=== PATIENT | male | born 1945 | race American Indian/Alaskan Native ===

== ENCOUNTER 2017-03-13 13:16 | Inpatient (IN) | payer MEDICARE ==
[2017-03-13] MEDS ORDERED: D50W (25GM) Syringe IV PRN ×2 (15:05→17:19)
[2017-03-13] MEDS ORDERED: KIONEX PO ONE ×2 (15:19→18:00)
[2017-03-13] MEDS: NACL 0.9% 1000 ML 1,000 ML IV SCH (17:34)
[2017-03-13] MEDS: NORCO 7.5/325 PO PRN ×2 (17:35→23:15)
[2017-03-13 19:13] LABS: Basophils % (Auto) 0.6 % (0.0-1.8); Eosinophils % (Auto) 0.1 % (0.0-4.3); Hematocrit 43.3 % (35.5-45.6); Hemoglobin 13.9 gm/dl (11.8-15.2); Mean Corpuscular HGB Conc 32 % (32-34); Mean Corpuscular Hemoglobin 30 pg (28-32); Mean Corpuscular Volume 93 fl (84-94); Platelet Count 269 K/mm3 (140-440); Red Blood Count 4.68 M/mm3 (3.65-5.03); Red Cell Distribution Width 14.1 % (13.2-15.2); White Blood Count 9.6 K/mm3 (4.5-11.0)
[2017-03-13 19:19] LABS: Albumin 4.1 g/dL (3.9-5); Albumin/Globulin Ratio 1.2 %; Bilirubin,Total 0.4 mg/dL (0.1-1.2); Calcium 9.9 mg/dL (8.4-10.2); Chloride 99.8 mmol/L (98-107); Potassium 5.1 mmol/L (3.6-5.0); Total Protein 7.6 g/dL (6.3-8.2)
--- NOTE | 2017-03-13 20:04 | History and Physical Report ---
History of Present Illness Date of examination: 03/13/17 Date of admission: 03/13/17 15:19 Chief complaint: Left shoulder pain Elevated serum Potassium Generalised weakness . History of present illness: 71 year old male admitted from the office with above named complaint . Patient had preoprative evaluation for planned left rotator cuff repair and labs was found to be abnormal showing elevated BUN and Creatinine and serum potassium was 5.8 .This was later repeated and found to be 6.2 . Patient has ongoing treatment for Type 2 Diabetes and Hypertension and previous evaluation for Chronic renal insufficiency previously evaluated by Dr Cee's group . Patient complaining of ongoing left shoulder pain aggravated by physical activities and pushing and lifting . Patient has ongoing generalized body pain , no chest pain and denied shortness of breath , no fever or chills .Patientstated taht his blood glucose has been running fairly well . Past History Past Medical History: diabetes, hypertension, renal failure Social history: , lives with family Family history: diabetes, hypertension, stroke Medications and Allergies Allergies Allergy/AdvReac Type Severity Reaction Status Date / Time No Known Allergies Allergy Verified 06/20/13 06:44 Home Medications Medication Instructions Recorded Confirmed Last Taken Type Gabapentin 800 mg PO TID 06/20/13 03/13/17 03/13/17 08:00 History Nitroglycerin [Nitrostat] 0.4 mg SL PRN PRN 06/20/13 03/13/17 06/20/15 History .4mg Clopidogrel Bisulfate [Plavix] 75 mg PO QDAY #30 tablet 06/21/13 03/13/17 08:00 Rx 75 mg Insulin Aspart Prot/Aspart(Nf) 50 unit SQ QAM 01/18/14 03/13/17 03/13/17 08:00 History [NovoLOG Mix 70/30 VIAL] 50 units Insulin NPH/Regular [NovoLIN 70/30] 45 unit SQ QPM 01/18/14 03/13/17 03/12/17 20 :00 History 45 units Pravastatin Sodium [Pravastatin 20 mg PO HS 07/21/15 03/13/17 03/13/17 08:00 History Sodium] Aspirin [Aspirin TAB] 325 mg PO DAILY 03/13/17 03/13/17 03/13/17 08:00 History 325 mg Doxycycline Monohydrate 100 mg PO BID 03/13/17 03/13/17 03/13/17 08:00 History [Doxycycline Monohydrate CAP] 100 mg HYDROcodone/APAP 10-325 [[place] 1 each PO Q6HR PRN 03/13/17 03/13/17 03/12/17 20: 00 History 10/325] Naproxen [Naprosyn TAB] 500 mg PO BIDPC 03/13/17 03/13/17 03/13/17 08:00 History 500 mg Active Meds: Active Medications Acetaminophen/Hydrocodone Bitart ([place] 7.5/325) 1 each PO Q6H PRN PRN Reason: Pain, Moderate (4-6) Last Admin: 03/13/17 17:35 Dose: 1 each Dextrose (D50w (25gm) Syringe) 50 ml IV PRN PRN PRN Reason: Hypoglycemia Dextrose (D50w (25gm) Syringe) 50 ml IV PRN PRN PRN Reason: Hypoglycemia Heparin Sodium (Porcine) (Heparin) 5,000 unit SUB-Q Q12HR HARESH Sodium Chloride (Nacl 0.9% 1000 Ml) 1,000 mls @ 100 mls/hr IV DIRECT HARESH Last Admin: 03/13/17 17:34 Dose: 100 mls/hr Insulin Human Regular (Novolin R) 0 units SUB-Q ACHS HARESH PRN Reason: Protocol Last Admin: 03/13/17 17:29 Dose: 6 units Review of Systems Constitutional: weakness Cardiovascular: palpitations, decreased exercise tolerance Musculoskeletal: shooting arm pain, low back pain, morning stiffness, limitation of motion Endocrine: high blood sugars Exam - Constitutional Vitals: Temp Pulse Resp BP Pulse Ox 97.2 F L 102 H 20 166/95 98 03/13/17 14:32 03/13/17 14:32 03/13/17 14:32 03/13/17 14:32 03/13/17 14:32 General appearance: Present: no acute distress - EENT Eyes: Present: PERRL, EOM intact ENT: poor dentition - Neck Neck: Present: supple, normal ROM - Respiratory Respiratory effort: normal Respiratory: bilateral: CTA - Cardiovascular Rhythm: regular Heart Sounds: Present: S1 & S2 - Extremities Extremities: no ischemia, pulses symmetrical, No edema, normal temperature Peripheral Pulses: within normal limits - Abdominal General gastrointestinal: Present: non-tender, normal bowel sounds Male genitourinary: Present: deferred - Rectal Rectal Exam: deferred - Integumentary Integumentary: Present: warm, dry - Musculoskeletal Musculoskeletal: left sided weakness, other (limited ROM left shoulder ) - Psychiatric Psychiatric: appropriate mood/affect, memory intact, cooperative - Neurologic Neurologic: CNII-XII intact Results - Labs CBC & Chem 7: 03/13/17 17:03 03/13/17 20:39 Labs: Abnormal lab results 03/13/17 03/13/17 Range/Units 17:03 17:15 Potassium 5.1 H (3.6-5.0) mmol/L BUN 32 H (9-20) mg/dL Creatinine 1.6 H (0.8-1.5) mg/dL Glucose 336 H (75-100) mg/dL POC Glucose 314 H (70-105) Assessment and Plan - Patient Problems (1) Acute renal failure Current Visit: Yes Status: Acute Qualifiers: Acute renal failure type: A Plan to address problem: Will admit patient for management of hyperkalemia. Kayexalate ordered and repeat potassium to be monitored renal consultation with Dr. Cee/Dr. Kiser (2) Acute hyperkalemia Current Visit: Yes Status: Acute (3) Essential (primary) hypertension Current Visit: Yes Status: Acute Plan to address problem: Continue current blood pressure medication monitor urinary output and blood pressure control for optimal management (4) Type 2 diabetes mellitus without complications Current Visit: Yes Status: Acute Qualifiers: Diabetes mellitus prison insulin use: D Plan to address problem: Patient noted to be hyperglycemic will adjust current long-acting insulin and place on moderate dose sliding scale regular insulin control to encourage further movement of potassium into the intracellular space (5) Osteoarthrosis involving shoulder region Current Visit: Yes Status: Acute Qualifiers: Osteoarthritis type: O Laterality: L Plan to address problem: Patient being scheduled for rotator cuff surgery. With continue with current medical management for optimal electrolyte control and renal function stabilization prior to surgery
--- NOTE | 2017-03-13 22:18 | Consultation ---
History of Present Illness - Reason for Consult Consult date: 03/13/17 acute renal failure, hyperkalemia Requesting physician: GABBY DAVILA - History of Present Illness 71 years old male known to us via (who is an ESRD pt), sent from PCP office for admission 2/2 hyperkalemia. He states that he was scheduled to have shoulder surgery done at [facility] where preop labs showed high potassium . Surgery was postponed and he was sent to PCP for management of hyperkalemia. Repeat labs were drawn there and it showed K of 6.3. He has hx of long standing DM II and HTN and has CKD stage 3 with a baseline CR of about 1.6 to 1.8. We are consulted to assist with management of CKD/hyperkalemia Past History Past Medical History: diabetes, hypertension, renal failure Social history: , lives with family Family history: diabetes, hypertension, stroke Medications and Allergies Allergies Allergy/AdvReac Type Severity Reaction Status Date / Time No Known Allergies Allergy Verified 06/20/13 06:44 Home Medications Medication Instructions Recorded Confirmed Last Taken Type Gabapentin 800 mg PO TID 06/20/13 03/13/17 03/13/17 08:00 History Nitroglycerin [Nitrostat] 0.4 mg SL PRN PRN 06/20/13 03/13/17 06/20/15 History .4mg Clopidogrel Bisulfate [Plavix] 75 mg PO QDAY #30 tablet 06/21/13 03/13/17 08:00 Rx 75 mg Insulin Aspart Prot/Aspart(Nf) 50 unit SQ QAM 01/18/14 03/13/17 03/13/17 08:00 History [NovoLOG Mix 70/30 VIAL] 50 units Insulin NPH/Regular [NovoLIN 70/30] 45 unit SQ QPM 01/18/14 03/13/17 03/12/17 20 :00 History 45 units Pravastatin Sodium [Pravastatin 20 mg PO HS 07/21/15 03/13/17 03/13/17 08:00 History Sodium] Aspirin [Aspirin TAB] 325 mg PO DAILY 03/13/17 03/13/17 03/13/17 08:00 History 325 mg Doxycycline Monohydrate 100 mg PO BID 03/13/17 03/13/17 03/13/17 08:00 History [Doxycycline Monohydrate CAP] 100 mg HYDROcodone/APAP 10-325 [[place] 1 each PO Q6HR PRN 03/13/17 03/13/17 03/12/17 20: 00 History 10/325] Naproxen [Naprosyn TAB] 500 mg PO BIDPC 03/13/17 03/13/17 03/13/17 08:00 History 500 mg Active Meds: Active Medications Acetaminophen/Hydrocodone Bitart ([place] 7.5/325) 1 each PO Q6H PRN PRN Reason: Pain, Moderate (4-6) Last Admin: 03/13/17 17:35 Dose: 1 each Dextrose (D50w (25gm) Syringe) 50 ml IV PRN PRN PRN Reason: Hypoglycemia Dextrose (D50w (25gm) Syringe) 50 ml IV PRN PRN PRN Reason: Hypoglycemia Heparin Sodium (Porcine) (Heparin) 5,000 unit SUB-Q Q12HR HARESH Sodium Chloride (Nacl 0.9% 1000 Ml) 1,000 mls @ 100 mls/hr IV DIRECT HARESH Last Admin: 03/13/17 17:34 Dose: 100 mls/hr Insulin Human Regular (Novolin R) 0 units SUB-Q ACHS HARESH PRN Reason: Protocol Last Admin: 03/13/17 17:29 Dose: 6 units Review of Systems All systems: negative Constitutional: no weight loss, no weight gain, no fever Ears, nose, mouth and throat: no nasal discharge, no sinus pressure Cardiovascular: no chest pain, no orthopnea, no palpitations Respiratory: no cough with sputum, no shortness of breath Gastrointestinal: no abdominal pain, no nausea, no vomiting Genitourinary Male: no dysuria, no hematuria, no flank pain Rectal: no pain, no incontinence Musculoskeletal: no neck stiffness, no neck pain Integumentary: no rash, no pruritis, no redness Neurological: no weakness, no parathesias, no numbness Psychiatric: no anxiety, no memory loss Endocrine: no cold intolerance, no heat intolerance Hematologic/Lymphatic: no easy bruising, no easy bleeding Exam - Vital Signs Vital signs: Vital Signs Temp Pulse Resp BP Pulse Ox 97.2 F L 102 H 20 166/95 98 03/13/17 14:32 03/13/17 14:32 03/13/17 14:32 03/13/17 14:32 03/13/17 14:32 - General Appearance General appearance: well-developed, well-nourished, appears stated age EENT: PERRL, mucous membranes moist Neck: Present: neck supple, trachea midline. Absent: JVD/HJR, Masses Respiratory: Clear to Ascultation, Other (no wheezing ) Heart: regular, normal heart rate, S1S2, no murmurs Gastrointestinal: Present: normoactive bowel sounds. Absent: tenderness Integumentary: no rash, warm and dry Neurologic: no focal deficit, alert and oriented x3, gait normal, strength 5/5 Musculoskeletal: Absent: deformities, joint swelling Psychiatric: mood/affect appropriate, cooperative Results - Lab Results 03/13/17 17:03 03/13/17 20:39 Most recent lab results Calcium 9.9 mg/dL (8.4-10.2) 03/13/17 17:03 Assessment and Plan 1. Hyperkalemia 2. CKD stage III 3. Essential HTN 4. DM II with renal complications 5. Lt Rotator cuff injury Plan: Medical manegemnt for hyperkalemia with kayaxlate Will also start IVF --to increase delivery of sodium to distal renal tubules hence facilitating K+ excretion His glucose is also >300. Art give insulin to treat hyperglycemia and also induce cell -shift of K+ Low potassium diet discussed Recheck labs later today Obtain Urine studies/renal U/S Further recommendations to follow Thank you for the consult
[2017-03-13] MEDS: HEPARIN SUB-Q SCH (23:20)
[2017-03-14] MEDS: NORCO 7.5/325 PO PRN ×3 (05:51→18:24)
[2017-03-14] MEDS: NACL 0.9% 1000 ML 1,000 ML IV SCH ×2 (07:07→17:07)
--- NOTE | 2017-03-14 09:16 | Progress Note ---
Assessment and Plan - Patient Problems (1) Acute renal failure Current Visit: Yes Status: Acute Qualifiers: Acute renal failure type: A Plan to address problem: Will admit patient for management of hyperkalemia. Kayexalate ordered and repeat potassium to be monitored renal consultation with Dr. Cee/Dr. Kiser (2) Acute hyperkalemia Current Visit: Yes Status: Acute (3) Essential (primary) hypertension Current Visit: Yes Status: Acute Plan to address problem: Continue current blood pressure medication monitor urinary output and blood pressure control for optimal management (4) Type 2 diabetes mellitus without complications Current Visit: Yes Status: Acute Qualifiers: Diabetes mellitus exterminator termite insulin use: D Plan to address problem: Patient noted to be hyperglycemic will adjust current long-acting insulin and place on moderate dose sliding scale regular insulin control to encourage further movement of potassium into the intracellular space (5) Osteoarthrosis involving shoulder region Current Visit: Yes Status: Acute Qualifiers: Osteoarthritis type: O Laterality: L Plan to address problem: Patient being scheduled for rotator cuff surgery. With continue with current medical management for optimal electrolyte control and renal function stabilization prior to surgery Subjective Date of service: 03/14/17 Principal diagnosis: hyperkalemia, acute on chronic kidney disease Interval history: Patient feels better denied any chest pain no shortness of breath, no fever reported by nursing staff. Objective - Exam Narrative Exam: GENERAL: Patient is not in any acute distress not pale or jaundiced no cyanosis HEENT: Mildly pale but not jaundiced no cyanosis mucous membrane is moist with no exudates or hemorrhage NECK: [No JVD, no thyroid enlargement and no lymphadenopathy.] CHEST/LUNGS: Reduced air exchange bibasally [No chest wall tenderness, percussion is normal, symmetrical chest wall.] HEART/CARDIOVASCULAR: Tachycardia. Second heart sounds only does no audible murmur no S3 or S4 ABDOMEN: [Abdomen is soft, nondistended, no guarding, no rebound tenderness, no masses palpable per abdomen, active bowel sounds.] SKIN: [Warm and dry, no rash.] NEURO: [Awake, alert, oriented x3, speech normal. Power 5/5 in all the extremities.] EXTREMITIES: [No pedal edema, good peripheral pulses, no finger or toe clubbing. ] - Constitutional Vitals: Vital Signs - 12hr 03/13/17 21:38 Temperature 97.8 F Pulse Rate 86 Respiratory 18 Rate Blood Pressure 162/94 O2 Sat by Pulse 100 Oximetry - Labs CBC & Chem 7: 03/13/17 17:03 03/13/17 20:39 Labs: Abnormal lab results 03/13/17 03/13/17 03/13/17 Range/Units 17:03 17:15 22:16 Potassium 5.1 H (3.6-5.0) mmol/L BUN 32 H (9-20) mg/dL Creatinine 1.6 H (0.8-1.5) mg/dL Glucose 336 H (75-100) mg/dL POC Glucose 314 H 274 H (70-105) 03/14/17 Range/Units 07:39 Potassium (3.6-5.0) mmol/L BUN (9-20) mg/dL Creatinine (0.8-1.5) mg/dL Glucose (75-100) mg/dL POC Glucose 170 H (70-105)
[2017-03-14] MEDS: HEPARIN SUB-Q SCH ×2 (10:04→21:53)
--- NOTE | 2017-03-14 11:49 | Progress Note ---
Assessment and Plan 1. Hyperkalemia 2. CKD stage III 3. Essential HTN 4. DM II with renal complications 5. Lt Rotator cuff injury Plan: Hyperkalemia improved with medical management CR not to far from his baseline Glucose control per primary care Avoid nephrotoxins Low potassium diet discussed D/c planning per PCP Subjective Date of service: 03/14/17 Principal diagnosis: hyperkalemia, acute on chronic kidney disease Interval history: No SOB/CP Objective - Exam Narrative Exam: General appearance: well-developed, well-nourished, appears stated age EENT: PERRL, mucous membranes moist Neck: Present: neck supple, trachea midline. Absent: JVD/HJR, Masses Respiratory: Clear to Ascultation, Other (no wheezing ) Heart: regular, normal heart rate, S1S2, no murmurs Gastrointestinal: Present: normoactive bowel sounds. Absent: tenderness Integumentary: no rash, warm and dry Neurologic: no focal deficit, alert and oriented x3, gait normal, strength 5/5 Musculoskeletal: Absent: deformities, joint swelling Psychiatric: mood/affect appropriate, cooperative - Vital Signs Vital signs: Vital Signs - 12hr 03/14/17 03/14/17 09:55 10:00 Temperature 98.0 F Pulse Rate 83 79 Respiratory 20 16 Rate Blood Pressure 157/87 - Lab 03/13/17 17:03 03/13/17 20:39 Most recent lab results Calcium 9.9 mg/dL (8.4-10.2) 03/13/17 17:03
--- NOTE | 2017-03-14 14:32 | Admit Criteria Form ---
Admission Criteria Documentation: UROLOGIC DISEASE G Clinical Indications for Admission to Inpatient Care (Place ' X' for any and all applicable criteria): Hospital admission is needed for appropriate care of the patient because of 1 or more of the following: [ ]I. New-onset Reduced urine output, or hydronephrosis remaining after emergency or observation level care (as appropriate ) [X ]II. Renal disease needing inpatient care indicated by 1 or more of the following(2)(3)(4): [ X]a) Acute renal failure [ ]b) Significant uremic complications [ ]c) Acute kidney injury (that does not qualify as Acute renal failure ) requiring inpatient care indicated by ALL of the following(5)(6)(7)(8) (9): [ ]i) Worsening clinical status (eg, rising creatinine) despite outpatient and observation care treatment (eg, hydration) [ ]ii) Acute kidney injury indicated by 1 or more of the following: [ ]1) 2-fold or more rise in serum creatinine from baseline [ ]2) Reduction of more than 50% in estimated glomerular filtration rate from baseline [ ]3) Urine output less than 0.5 mL/kg/hr for 12 hours despite adequate volume status [ ]d) Systemic cause (eg, Goodpasture syndrome ) needing inpatient care [ ]e) Rapidly progressive renal disease needing inpatient care (eg, plasmapheresis, immunosuppression ) Anasarca needing inpatient care [ ]f) Hemoptysis [ ]g) Hemolysis, thrombosis, or infraction [ ]h) Anasarca needing inpatient care [ ]III. New-onset or uncontrolled nephrogenic diabetes insipidus [ ]IV. Urologic infection requiring inpatient care as indicated by 1 or more of the following(10)(11)(12): [ ]a) Hemodynamic instability [ ]b) Dehydration that is severe or persistent [ ]c) Failure of outpatient treatment [ ]d) Zachary's gangrene [ ]e) Urinary obstruction [ ]f) Immunocompromised state (eg, chronic steroid use ) [ ]g) Known renal or urologic abnormalities(eg, indwelling catheter, structural abnormalities ) [ ]h) Recent urologic manipulation or procedure Urinary obstruction [ ]i) Abscess requiring drainage Immunocompromised state [ ]V. Acute urinary retention requiring inpatient management as indicated by ANY ONE of the following(1)(13): [ ]a) Retention cannot be alleviated via emergency or observation level care (eg, urinary catheter placement) [ ]b) Hemodynamic instability [ ]c) Acute neurologic etiology (eg, cauda equina) [ ]d) Dehydration or other complications not manageable with emergency or observation level care [ ]e) Acute kidney injury (that does not qualify as Acute renal failure ) requiring inpatient care indicated by ALL of the following(5)(6)(7)(8) (9): [ ]i) Acute kidney injury indicated by ANY ONE of the following: [ ]1) 2-fold or more rise in serum creatinine from baseline [ ]2) Reduction of more than 50% in estimated glomerular filtration rate from baseline [ ]ii) Worsening clinical status (eg, rising creatinine) despite outpatient and observation care treatment (eg, hydration) [ ]. Gross hematuria requiring inpatient management as indicated by ANY ONE of the following(1)(2): [ ]a) Evidence of renal obstruction [ ]b) Reduced urine output [ ]c) Clot retention after urinary catheterization and irrigation [ ]d) Severe Anemia [ ]e) Systemic cause needing inpatient treatment (eg, Goodpasture syndrome) [ ]VII. Priapism not responsive to emergency or observation care treatment [ ]VII. Scrotal, testicular, or epididymal disorder requiring inpatient care indicated by 1 or more of the following(1)(14)(15)(16): [ ]a) Scrotal edema or infection not manageable with emergency or observation level care [ ]b) Orchitis not manageable with emergency or observation level care [ ]c) Epididymitis not manageable with emergency or observation level of care [ ]d) Other scrotal, testicular, or epididymal disorder (eg, infection, inflammation) not manageable with emergency or observation level care [ ]IX. Complications of transplanted kidney indicated by 1 or more of the following [ ]a) Acute graft rejection requiring inpatient management (eg, intravenous immunosuppression) [ ]b) Acute kidney injury indicated by ALL of the following i) Acute kidney injury indicated by 1 or more of the following 1) 2-fold or more rise in serum creatinine from baseline 2) Reduction of more than 50% in estimated glomerular filtration rate from baseline 3) Urine output less than 0.5 mL/kg/hr for 12 hours despite adequate volume status ii) Kidney injury too severe or not responsive to outpatient and observation care treatment (eg, hydration) [ ]c) Infection requiring inpatient management (eg, Hemodynamic instability, need for intravenous antimicrobial treatment) [ ]d) Other complication of transplanted kidney requiring patient management (eg, severe diarrhea leading to malabsorption) [ ]X. Trauma to renal, genital, or urologic system requiring inpatient medical care [ ]XI. Urologic Disease condition, symptom, or finding for which emergency and observation care have failed or are not considered appropriate. The original [employer] content created by [employer] has been revised. The portions of the content which have been revised are identified through the use of italic text or in bold, and [email or web address] has neither reviewed nor approved the modified material. All other unmodified content is copyright [facility]. Please see references footnoted in the original [facility] edition 2016 Admission Criteria Met: Yes
[2017-03-14] MEDS: ULTRAM PO PRN (21:58)
[2017-03-15] MEDS: NORCO 7.5/325 PO PRN ×3 (02:08→14:04)
[2017-03-15] MEDS: NACL 0.9% 1000 ML 1,000 ML IV SCH (02:10)
--- NOTE | 2017-03-15 09:08 | Discharge Summary ---
Providers - Providers Date of Admission: 03/13/17 15:19 Date of discharge: 03/15/17 Attending physician: GABBY DAVILA 03/13/17 15:05 Consult to Physician [CONS] Routine Consulting Provider: HEMANTH FIGUEROA Reason For Exam: RENAL FAILURE Place consult to:: Notified:: Phone number called:: [phone] Was contact made?: Yes If yes, spoke with:: BRITTANY Time called:: 16:50 Comment:: TANISHA Primary care physician: SENIOR UI DEVELOPER Hospitalization Reason for admission: Hyperkalemia Hospital course: Admitted with elevated Potasium and left shoulder pain .Patient being prepared for left shoulder rotator cuff repair and was found to have acute on chronic renal failure with elevated Potassium of 6.2 Patient was admitted , given Kayaexalate and Iv hydration with improvement in Potassium level and K level now at 4.3 . Patient was evaluiated by city maintenance manager Dr Kiser . Patient now stable asessed for discharge and to proceed with planned surgery . Disposition: TO HOME OR SELFCARE - Discharge Diagnoses (1) Acute renal failure Status: Chronic Qualifiers: Acute renal failure type: A (2) Acute hyperkalemia Status: Resolved (3) Essential (primary) hypertension Status: Chronic (4) Type 2 diabetes mellitus without complications Status: Chronic Qualifiers: Diabetes mellitus care home insulin use: D (5) Osteoarthrosis involving shoulder region Status: Chronic Qualifiers: Osteoarthritis type: O Laterality: L Core Measure Documentation - Palliative Care Palliative Care/ Comfort Measures: Not Applicable - Core Measures Any of the following diagnoses?: none Exam - Physical Exam Narrative exam: GENERAL: Patient is not in any acute distress not pale or jaundiced no cyanosis HEENT: Mildly pale but not jaundiced no cyanosis mucous membrane is moist with no exudates or hemorrhage NECK: [No JVD, no thyroid enlargement and no lymphadenopathy.] CHEST/LUNGS: Reduced air exchange bibasally [No chest wall tenderness, percussion is normal, symmetrical chest wall.] HEART/CARDIOVASCULAR: Tachycardia. Second heart sounds only does no audible murmur no S3 or S4 ABDOMEN: [Abdomen is soft, nondistended, no guarding, no rebound tenderness, no masses palpable per abdomen, active bowel sounds.] SKIN: [Warm and dry, no rash.] NEURO: [Awake, alert, oriented x3, speech normal. Power 5/5 in all the extremities.] EXTREMITIES: [No pedal edema, good peripheral pulses, no finger or toe clubbing. ] - Constitutional Vitals: Temp Pulse Resp BP Pulse Ox 98.8 F 77 20 187/97 97 03/14/17 22:00 03/14/17 22:00 03/15/17 02:08 03/14/17 22:00 03/14/17 22:00 Plan Activity: no restrictions Weight Bearing Status: Full Weight Bearing Diet: renal, low carbohydrate Follow up with: PRIMARY CARE, [Primary Care Provider] - 7 Days
[2017-03-15] MEDS ORDERED: NORCO 10/325 PO PRN (09:11)
[2017-03-15] MEDS ORDERED: NITROSTAT SL PRN (09:11)
--- NOTE | 2017-03-15 09:53 | Progress Note ---
Assessment and Plan 1. Hyperkalemia 2. CKD stage III 3. Essential HTN 4. DM II with renal complications 5. Lt Rotator cuff injury Plan: Hyperkalemia improved with medical management CR not to far from his baseline Glucose control per primary care Avoid nephrotoxins Low potassium diet discussed F/u in 1-2 weeks in our office for repeat labs. Subjective Date of service: 03/15/17 Principal diagnosis: hyperkalemia, acute on chronic kidney disease Interval history: No SOB/CP , up on chair, ready for discharge Objective - Exam Narrative Exam: General appearance: well-developed, well-nourished, appears stated age EENT: PERRL, mucous membranes moist Neck: Present: neck supple, trachea midline. Absent: JVD/HJR, Masses Respiratory: Clear to Ascultation, Other (no wheezing ) Heart: regular, normal heart rate, S1S2, no murmurs Gastrointestinal: Present: normoactive bowel sounds. Absent: tenderness Integumentary: no rash, warm and dry Neurologic: no focal deficit, alert and oriented x3, gait normal, strength 5/5 Musculoskeletal: Absent: deformities, joint swelling Psychiatric: mood/affect appropriate, cooperative - Vital Signs Vital signs: Vital Signs - 12hr 03/14/17 03/14/17 03/14/17 21:58 22:00 22:58 Temperature 98.8 F Pulse Rate 77 Respiratory 20 18 20 Rate Blood Pressure 187/97 O2 Sat by Pulse 97 Oximetry 03/15/17 02:08 Temperature Pulse Rate Respiratory 20 Rate Blood Pressure O2 Sat by Pulse Oximetry - Lab 03/13/17 17:03 03/13/17 20:39 Most recent lab results Calcium 9.9 mg/dL (8.4-10.2) 03/13/17 17:03
[2017-03-15] MEDS ORDERED: ASPIRIN PO SCH (10:00)
[2017-03-15] MEDS ORDERED: PLAVIX PO SCH (10:00)
[2017-03-15] MEDS: HEPARIN SUB-Q SCH (10:13)
[2017-03-15 10:38] VITALS: BP 161/74
[2017-03-15] MEDS: ULTRAM PO PRN (10:54)
[2017-03-15] MEDS ORDERED: NEURONTIN PO SCH (14:00)
[2017-03-15] MEDS ORDERED: ZOCOR PO SCH (22:00)
== END 2017-03-15 14:55 | disposition home health service (06) | DRG 641 ==
LOC: 3A 13:16 → UNDOADMIN 13:16 → CC2 15:19
PROVIDERS: ADMIT Internal Medicine; ATTEND Internal Medicine
DX: E87.5 Hyperkalemia (principal); N17.9 Acute kidney failure, unspecified; M75.102 Unspecified rotator cuff tear or rupture of left shoulder, not specified as traumatic; I12.9 Hypertensive chronic kidney disease with stage 1 through stage 4 chronic kidney disease, or unspecified chronic kidney disease; E11.22 Type 2 diabetes mellitus with diabetic chronic kidney disease; N18.3 Chronic kidney disease, stage 3 (moderate); Z82.3 Family history of stroke; Z83.3 Family history of diabetes mellitus; Z82.49 Family history of ischemic heart disease and other diseases of the circulatory system
CPT/HCPCS: 36415; 80053; 82962; 84132; 85025; J1644; J1815; J7030